=== PATIENT | female | born 1940 | race Caucasian/White ===

== ENCOUNTER 2018-01-31 13:05 | Emergency (ER) | payer OTHER ==
[~2018-01-31] VITALS: Ht 154.9 cm; Wt 58.5 kg
[2018-01-31] MEDS ORDERED: MEDROLPACK PO (14:20)
[2018-01-31] MEDS ORDERED: DICLOFENAC POTA50 MG PO (14:20)
[2018-01-31] MEDS ORDERED: NORFLEX100MG PO (14:21)
== END 2018-01-31 15:14 | disposition home or self-care (01) ==
LOC: ER 13:05
DX: M54.5 Low back pain (principal); M25.551 Pain in right hip